=== PATIENT | male | born 1950 | race Caucasian/White ===

== ENCOUNTER 2020-03-27 14:41 | Emergency (ER) | payer MEDICARE, BC, SELFPAY ==
[2020-03-27 15:00] VITALS: BP 113/90; PULSE 107; RESP 18; TEMP 36.6; O2SAT 98
--- NOTE | 2020-03-27 15:47 | ED.WOUNDLAC ---
HPI - Wound/Laceration General Chief Complaint: Wound/Laceration Stated Complaint: lac on left thumb Time Seen by Provider: 03/27/20 15:16 Source: patient Mode of arrival: ambulatory Limitations: no limitations History of Present Illness HPI narrative: 69 year old male who presents to [facility] care with complaints of laceration to left lateral thumb base. Patient states that he was cutting a piece of leather with a knife and it slipped and he cut his thumb accidently. Patient states that he has not had a tetanus shot for over 10 years. Patient has 1.5cm linear laceration to the lateral base of his left thumb. Patient has full mobility of his thumb with no tingling or numbness voiced to his thumb, nail beds of left hand niurka briskly, strong left radial pulse. Onset (ago): hour(s) Location: other (base of left thumb) Extremity Location: Left: hand (left lateral thumb base) Place: home Patient tetanus UTD: No Context: accidental Associated symptoms: none Treatments prior to arrival: bandage Related Data Home Medications Medication Instructions Recorded Confirmed atorvastatin 20 mg PO DAILY 03/27/20 03/27/20 lisinopril 10 mg PO DAILY 03/27/20 03/27/20 Allergies Allergy/AdvReac Type Severity Reaction Status Date / Time No Known Allergies Allergy Verified 03/27/20 15:17 Review of Systems Review of Systems: Narrative: CONSTITUTIONAL: Denies fever, chills, or sweats. EYES: Denies visual changes, redness, or discharge. ENT: Denies rhinorrhea, congestion, sore throat, or otalgia. CARDIOVASCULAR: Denies chest pain, palpitations, or edema. RESPIRATORY: Denies cough or dyspnea. GASTROINTESTINAL: Denies abdominal pain, nausea, vomiting, or diarrhea. GENITOURINARY: Denies dysuria or hematuria. SKIN: Denies rash or itching. Laceration to lateral base of left thumb 1.5 cm linear MUSCULOSKELETAL: Denies back pain, joint pain, or myalgia. NEUROLOGIC: Denies headache, numbness, or weakness. PSYCHIATRIC: Denies anxiety or depression. All systems reviewed & are unremarkable except as noted in HPI and below PMFSH Past Medical History Medical History (Updated 03/27/20 @ 16:20 by Carey Maguire NP) Hyperlipidemia Hypertension Surgical History Surgical History (Updated 03/27/20 @ 18:09 by Carey Maguire NP) H/O eye surgery right eye Social History Social History (Updated 03/27/20 @ 18:07 by Carey Maguire NP) Smoking status: Current every day smoker Tobacco type: cigarettes Alcohol intake: current Substance use: unknown Living arrangements: alone Additional living arrangements comments: recent Gender identity (if verbalized by the patient): Male Comments At time of signature, agree with nursing past medical, surgical, social history. There is no relevant family history pertinent to the presenting complaint Exam Narrative: Exam Narrative: GENERAL: Well-appearing, well-nourished, and in no acute distress. HEAD: Normocephalic, atraumatic. EYES: PERRLA and EOMI. ENT: Nares clear, no rhinorrhea or epistaxis. Mucous membranes moist. NECK: Supple.no lymphadenopathy CHEST: Clear to auscultation. No respiratory distress.SAO2 98% on room air HEART: Regular rate and rhythm. No murmur heard. Normal peripheral pulses. ABDOMEN: Soft, nontender, nondistended, normal active bowel sounds. EXTREMITIES: Normal range of motion. No edema. SKIN: Warm, dry, no rash. Laceration to lateral base of left thumb 1.5cm linear, no acute active bleeding NEURO: No focal deficits. Alert and oriented x3. Course Vital Signs Vital signs: Vital Signs Temperature 36.6 C 03/27/20 15:00 Pulse Rate 107 H 03/27/20 15:00 Respiratory Rate 18 03/27/20 15:00 Blood Pressure 113/90 03/27/20 15:00 Pulse Oximetry 98 03/27/20 15:00 Temperature 36.6 C 03/27/20 15:00 Pulse Rate 107 H 03/27/20 15:00 Respiratory Rate 18 03/27/20 15:00 Blood Pressure 113/90 03/27/20 15:00 Pulse Oximetry 98 03/27
[2020-03-27] MEDS: TETANUS,DIPHTHERIA,AC PERTUSSIS ADULT (0.5 ML) BOOSTRIX IM (15:59)
== END 2020-03-27 16:32 | disposition home or self-care (01) ==
PROVIDERS: Emergency Provider Registered Nurse; PCP Internal Medicine Infectious Disease
DX: S61.012A Laceration without foreign body of left thumb without damage to nail, initial encounter (principal); W26.0XXA Contact with knife, initial encounter; Z23 Encounter for immunization; F17.210 Nicotine dependence, cigarettes, uncomplicated; E78.5 Hyperlipidemia, unspecified; I10 Essential (primary) hypertension
CPT/HCPCS: 12001; 90471; 90715; 99202; G0463